=== PATIENT | female | born 1945 | race Two or more races ===

== ENCOUNTER 2020-12-13 08:54 | Emergency (ER) | payer OTHER ==
[~2020-12-13] VITALS: Ht 157.5 cm; Wt 85.3 kg
[2020-12-13] MEDS ORDERED: ZESTRIL10 M1 (09:04)
[2020-12-13] MEDS ORDERED: SYNTHROID50 MCG (09:04)
[2020-12-13] MEDS ORDERED: PERCOCET 5-3251 EACH PO (16:05)
[2020-12-13] MEDS ORDERED: DICLOFENAC POTA50 MG PO (16:05)
== END 2020-12-13 16:41 | disposition home or self-care (01) ==
LOC: ER 08:54
DX: G89.11 Acute pain due to trauma (principal); M25.512 Pain in left shoulder; S42.292S Other displaced fracture of upper end of left humerus, sequela; X58.XXXS Exposure to other specified factors, sequela

== ENCOUNTER 2022-10-20 17:25 | Emergency (ER) | payer OTHER ==
[~2022-10-20] VITALS: Ht 157.5 cm; Wt 79.4 kg
[~2022-10-20 17:25] MED LIST: DICLOFENAC POTA50 MG PO; PERCOCET 5-3251 EACH PO; SYNTHROID50 MCG; ZESTRIL10 M1
[2022-10-20] MEDS ORDERED: ROSUVASTATIN CA20 MG PO (17:53)
== END 2022-10-21 07:57 | disposition home or self-care (01) ==
LOC: ER 17:25
DX: U07.1 COVID-19 (principal); R11.10 Vomiting, unspecified; R11.0 Nausea; A08.8 Other specified intestinal infections; R05.9 Cough, unspecified; I10 Essential (primary) hypertension
CPT/HCPCS: 36415; 71045; 71250; 82803; 96365; 96366; 99284; J2405; J2930; J3490 ×2; J7030